=== PATIENT | female | born 1955 | race Caucasian/White ===

== ENCOUNTER 2019-06-17 11:46 | Emergency (ER) | payer MEDICARE, MEDICAID ==
[~2019-06-17] VITALS: Ht 162.6 cm; Wt 86.4 kg
[~2019-06-17 11:46] MED LIST: BYSTOLIC20 MG PO; GLUCOPHAGE500 MG/TAB PO; LANTUS100 U/ML SQ; NYSTATIN POWDER15 GM TOP; PEPCID 20MG TAB20 MG PO; PLAVIX 75MG TAB75 MG PO; PRILOSEC 20MG20 MG PO; PRINIVIL40 MG PO
[2019-06-17 12:16] VITALS: TEMP 98.4
[2019-06-17] MEDS ORDERED: VIGAMOX 0.5% 3 M3 ML OS (15:02)
[2019-06-17 15:10] VITALS: PULSE 65
== END 2019-06-17 15:10 | disposition home or self-care (01) ==
LOC: COL.ER 11:46
DX: H10.9 Unspecified conjunctivitis (principal); E11.9 Type 2 diabetes mellitus without complications; I10 Essential (primary) hypertension; J44.9 Chronic obstructive pulmonary disease, unspecified; F17.290 Nicotine dependence, other tobacco product, uncomplicated; Z79.4 Long term (current) use of insulin